=== PATIENT | male | born 1990 | race American Indian/Alaskan Native ===

== ENCOUNTER 2017-08-24 09:35 | Emergency (ER) | payer SELFPAY ==
[2017-08-24 09:51] VITALS: BP 112/73
[2017-08-24 10:35] LABS: Basophils % (Auto) 0.5 % (0.0-1.8); Eosinophils % (Auto) 1.7 % (0.0-4.3); Hematocrit 45.8 % (35.5-45.6); Hemoglobin 15.5 gm/dl (11.8-15.2); Mean Corpuscular HGB Conc 34 % (32-34); Mean Corpuscular Hemoglobin 30 pg (28-32); Mean Corpuscular Volume 90 fl (84-94); Platelet Count 143 K/mm3 (140-440); Red Blood Count 5.09 M/mm3 (3.65-5.03); Red Cell Distribution Width 14.4 % (13.2-15.2); White Blood Count 8.2 K/mm3 (4.5-11.0)
[2017-08-24 10:50] LABS: Alanine Aminotransferase 10 units/L (7-56); Albumin 4.4 g/dL (3.9-5); Albumin/Globulin Ratio 1.6 %; Alkaline Phosphatase 35 units/L (35-129); Anion Gap 14 mmol/L; BUN/Creatinine Ratio 18; Blood Urea Nitrogen 14 mg/dL (9-20); Calcium 8.8 mg/dL (8.4-10.2); Carbon Dioxide 29 mmol/L (22-30); Glucose 89 mg/dL (75-100); Lipase 17 units/L (13-60); Potassium 4.7 mmol/L (3.6-5.0); Sodium 140 mmol/L (137-145); Total Protein 7.2 g/dL (6.3-8.2)
--- NOTE | 2017-08-24 10:58 | Emergency Department Report ---
Chief Complaint: Abdominal Pain Stated Complaint: ABDOMINAL PAIN - HPI History of Present Illness: 27 y/o male with nmh, hx of ETOH, and Marijuana last use 2 days ago , who presents for generalized abdominal pain with n/v/d x 5 days , no fever no chills lost po intake 2 days ago subjectively , pain now 5/10 periumbilical , last n/v yesterday, last diarrhea yesterday. - Exam Vital Signs: Vital Signs 08/24/17 09:46 Temperature 98.1 F Pulse Rate 71 Respiratory 18 Rate Blood Pressure 112/73 O2 Sat by Pulse 100 Oximetry MSE screening note: Focused history and physical exam performed. Due to findings the following was ordered: ED Medical Decision Making - Lab Data Result diagrams: 08/24/17 10:14 08/24/17 10:14 ED Disposition for MSE Condition: Stable Referrals: PRIMARY CARE, [Primary Care Provider] - 3-5 Days
[2017-08-24 11:35] LABS: Bacteria,Urine 1+ /HPF (Negative); Bilirubin,Urine NEG (Negative); Blood,Urine NEG (Negative); Ketones,Urine NEG (Negative); Leukocyte Esterase,Urine NEG (Negative); Mucus,Urine FEW /HPF; Nitrite,Urine NEG (Negative); Protein,Urine <15 mg/dL mg/dL (Negative)
== END 2017-08-24 22:45 | disposition left against medical advice (07) ==
LOC: ED 09:35
DX: R10.9 Unspecified abdominal pain (principal); Z53.21 Procedure and treatment not carried out due to patient leaving prior to being seen by health care provider
CPT/HCPCS: 36415; 80053; 81001; 83690; 85025

== ENCOUNTER 2017-08-25 08:42 | Emergency (ER) | payer OTHER ==
[2017-08-25 09:44] VITALS: BP 106/62
--- NOTE | 2017-08-25 09:52 | Emergency Department Report ---
Chief Complaint: Abdominal Pain Stated Complaint: ABDOMINAL PAIN - HPI History of Present Illness: This is a 27-year-old male that presents with diffuse abdominal pain x2 weeks. Patient stated had episode of nausea, vomiting, and diarrhea but has subsided a couple of days ago. Patient denies any chest pain, shortness of breathe, numbness, tingling, fever, chills, n/v, headache, stiff neck. Denies any PMH. - Exam Vital Signs: Vital Signs 08/25/17 09:39 Temperature 97.3 F L Pulse Rate 75 Blood Pressure 106/62 O2 Sat by Pulse 97 Oximetry Physical Exam: GENERAL: The patient is a well-developed, well-nourished female in no apparent distress. Patient is alert and acting appropriately for age. Alert and oriented 3, no apparent distress, normal gait, atraumatic. ABDOMEN: Soft, nontender, and nondistended. Slight tenderness diffuse abdominal. Positive bowel sounds. No hepatosplenomegaly was noted. No guarding or rebound tenderness, negative epigastric bruit. Negative psoas sign, negative dumont sign, negative McBurneys sign MSE screening note: Focused history and physical exam performed. Due to findings the following was ordered: 1- This initial assessment/diagnostic orders/clinical plan/ treatment(s) is/are subject to change based on pt's health status, clinical progression and re- assessment by fellow clinical providers in the ED. Further treatment and workup at subsequent clinical provers discretion. Patient/guardians urged not to elope from ED as their condition may be serious if not clinically assessed and managed. 2-CBC, CMP, Lipase, amylase, UA ED Disposition for MSE Condition: Stable
[2017-08-25 10:14] LABS: Basophils % (Auto) 0.4 % (0.0-1.8); Eosinophils % (Auto) 1.3 % (0.0-4.3); Hematocrit 47.1 % (35.5-45.6); Hemoglobin 15.6 gm/dl (11.8-15.2); Mean Corpuscular HGB Conc 33 % (32-34); Mean Corpuscular Hemoglobin 30 pg (28-32); Mean Corpuscular Volume 90 fl (84-94); Platelet Count 154 K/mm3 (140-440); Red Blood Count 5.25 M/mm3 (3.65-5.03); Red Cell Distribution Width 14.3 % (13.2-15.2); White Blood Count 8.1 K/mm3 (4.5-11.0)
[2017-08-25 10:26] LABS: Alanine Aminotransferase 9 units/L (7-56); Albumin 4.3 g/dL (3.9-5); Albumin/Globulin Ratio 1.7 %; Alkaline Phosphatase 36 units/L (35-129); Amylase 75 units/L (27-131); Anion Gap 14 mmol/L; BUN/Creatinine Ratio 21; Blood Urea Nitrogen 19 mg/dL (9-20); Calcium 8.7 mg/dL (8.4-10.2); Carbon Dioxide 29 mmol/L (22-30); Chloride 99.3 mmol/L (98-107); Glucose 93 mg/dL (75-100); Lipase 12 units/L (13-60); Potassium 4.3 mmol/L (3.6-5.0); Sodium 138 mmol/L (137-145); Total Protein 6.9 g/dL (6.3-8.2)
== END 2017-08-25 09:48 | disposition left against medical advice (07) ==
LOC: ED 08:42
DX: R10.9 Unspecified abdominal pain (principal); Z53.21 Procedure and treatment not carried out due to patient leaving prior to being seen by health care provider
CPT/HCPCS: 36415; 80053; 82150; 83690; 85025

== ENCOUNTER 2019-09-01 08:01 | Emergency (ER) | payer SELFPAY ==
[2019-09-01 08:28] LABS: Basophils % (Auto) 0.7 % (0.0-1.8); Eosinophils # (Auto) 0.2 K/mm3 (0.0-0.4); Eosinophils % (Auto) 3.2 % (0.0-4.3); Hematocrit 41.1 % (35.5-45.6); Hemoglobin 14.2 gm/dl (11.8-15.2); Lymphocytes # (Auto) 1.5 K/mm3 (1.2-5.4); Mean Corpuscular HGB Conc 35 % (32-34); Mean Corpuscular Volume 88 fl (84-94); Monocytes # (Auto) 0.7 K/mm3 (0.0-0.8); Monocytes % (Auto) 10.3 % (0.0-7.3); Platelet Count 159 K/mm3 (140-440); Red Blood Count 4.67 M/mm3 (3.65-5.03); Red Cell Distribution Width 13.4 % (13.2-15.2)
[2019-09-01 08:32] LABS: Bilirubin,Urine NEG (Negative); Blood,Urine NEG (Negative); Color,Urine Yellow (Yellow); Mucus,Urine FEW /HPF; Protein,Urine <15 mg/dL mg/dL (Negative); WBC,Urine < 1.0 /HPF (0.0-6.0)
[2019-09-01] MEDS ORDERED: DICYCLOMINE 20 MG/2 ML INJ IM ONE (08:37)
[2019-09-01] MEDS ORDERED: SODIUM CHLORIDE 0.9% 1000 ML 1,000 ML IV ONE (08:37)
[2019-09-01] MEDS ORDERED: ONDANSETRON 4 MG/2 ML INJ IV ONE (08:37)
[2019-09-01 08:46] LABS: Alanine Aminotransferase 22 units/L (7-56); Albumin 4.4 g/dL (3.9-5); BUN/Creatinine Ratio 17; Blood Urea Nitrogen 15 mg/dL (9-20); Hemolysis Index 9
--- NOTE | 2019-09-01 08:55 | Emergency Department Report ---
ED General Adult HPI - General Chief complaint: Nausea/Vomiting/Diarrhea Stated complaint: VOMIT/DIARRHEA Time Seen by Provider: 09/01/19 08:30 Source: patient Mode of arrival: Ambulatory Limitations: No Limitations - History of Present Illness Initial comments: Patient is a 29-year-old male presents emergency room with complaints of N/V/D that began yesterday. He states he has had approximately 3 episodes of vomiting and about 6-7 episodes of diarrhea. He denies any sick contacts. He states he has eaten several different foods over the last few days. He denies any fever, blood or pus in the stool, hematochezia, hematemesis. He states he has mild abdominal cramping. He is able to keep water down. Denies any past medical history or allergies medications. - Related Data Previous Rx's Medication Instructions Recorded Last Taken Type Ondansetron [Zofran Odt] 4 mg PO Q8HR PRN #10 tab.rapdis 09/01/19 Unknown Rx Allergies Allergy/AdvReac Type Severity Reaction Status Date / Time No Known Allergies Allergy Verified 08/25/17 09:39 ED Review of Systems ROS: Stated complaint: VOMIT/DIARRHEA Other details as noted in HPI Comment: All other systems reviewed and negative ED Past Medical Hx - Past Medical History Previous Medical History?: No - Surgical History Past Surgical History?: Yes Additional Surgical History: L leg surgery - Social History Smoking Status: Current Every Day Smoker - Medications Home Medications: Home Medications Medication Instructions Recorded Confirmed Last Taken Type Ondansetron [Zofran Odt] 4 mg PO Q8HR PRN #10 tab.rapdis 09/01/19 Unknown Rx ED Physical Exam - General Limitations: No Limitations General appearance: alert, in no apparent distress - Head Head exam: Present: atraumatic, normocephalic - Eye Eye exam: Present: normal appearance - ENT ENT exam: Present: mucous membranes dry (mild) - Respiratory Respiratory exam: Present: normal lung sounds bilaterally. Absent: respiratory distress, wheezes, rales, rhonchi, stridor, chest wall tenderness, accessory muscle use, decreased breath sounds, prolonged expiratory - Cardiovascular Cardiovascular Exam: Present: regular rate, normal rhythm, normal heart sounds. Absent: systolic murmur, diastolic murmur, rubs, gallop - GI/Abdominal GI/Abdominal exam: Present: soft, normal bowel sounds. Absent: distended, tenderness, guarding, rebound, rigid - Neurological Exam Neurological exam: Present: alert, oriented X3 - Psychiatric Psychiatric exam: Present: normal affect, normal mood - Skin Skin exam: Present: warm, dry, intact ED Course Vital Signs 09/01/19 09/01/19 08:08 10:11 Temperature 98.3 F Pulse Rate 74 71 Respiratory 15 16 Rate Blood Pressure 125/73 Blood Pressure 130/74 [Left] O2 Sat by Pulse 99 100 Oximetry ED Medical Decision Making - Lab Data Result diagrams: 09/01/19 08:19 09/01/19 08:19 Lab Results 09/01/19 09/01/19 09/01/19 Range/Units 08:19 08:19 08:20 WBC 7.0 (4.5-11.0) K/mm3 RBC 4.67 (3.65-5.03) M/mm3 Hgb 14.2 (11.8-15.2) gm/dl Hct 41.1 (35.5-45.6) % MCV 88 (84-94) fl MCH 31 (28-32) pg MCHC 35 H (32-34) % RDW 13.4 (13.2-15.2) % Plt Count 159 (140-440) K/mm3 Lymph % (Auto) 21.0 (13.4-35.0) % [place] % (Auto) 10.3 H (0.0-7.3) % Eos % (Auto) 3.2 (0.0-4.3) % Baso % (Auto) 0.7 (0.0-1.8) % Lymph # 1.5 (1.2-5.4) K/mm3 Sterling # 0.7 (0.0-0.8) K/mm3 Eos # 0.2 (0.0-0.4) K/mm3 Baso # 0.0 (0.0-0.1) K/mm3 Seg Neutrophils % 64.8 (40.0-70.0) % Seg Neutrophils # 4.5 (1.8-7.7) K/mm3 Sodium 138 (137-145) mmol/L Potassium 3.7 (3.6-5.0) mmol/L Chloride 101.7 (98-107) mmol/L Carbon Dioxide 25 (22-30) mmol/L Anion Gap 15 mmol/L BUN 15 (9-20) mg/dL Creatinine 0.9 (0.8-1.5) mg/dL Estimated GFR > 60 ml/min BUN/Creatinine Ratio 17 % Glucose 104 H (75-100) mg/dL Calcium 9.0 (8.4-10.2) mg/dL Total Bilirubin 0.60 (0.1-1.2) mg/dL AST 35 (5-40) units/L ALT 22 (7-56) units/L Alkaline Phosphatase 44 (35-129) units/L Total Protein 7.2 (6.3-8.2) g/dL Albumin 4.4 (3.9-5) g/dL Albumin/Globulin Ratio 1.6 % Urine Color Yellow (Yellow) Urine Turbidity Clear (Clear) Urine pH 7.0 (5.0-7.0) Ur Specific [place] 1.017 (1.003-1.030) Urine Protein <15 mg/dl (Negative) mg/dL Urine Glucose (UA) Neg (Negative) mg/dL Urine Ketones 20 (Negative) mg/dL Urine Blood Neg (Negative) Urine Nitrite Neg (Negative) Urine Bilirubin Neg (Negative) Urine Urobilinogen 2.0 (<2.0) mg/dL Ur Leukocyte Esterase Neg (Negative) Urine WBC (Auto) < 1.0 (0.0-6.0) /HPF Urine RBC (Auto) 1.0 (0.0-6.0) /HPF Urine Mucus Few /HPF - Medical Decision Making Patient is a 29-year-old male presents emergency room with complaints of N/V/D that began yesterday. He states he has had approximately 3 episodes of vomiting and about 6-7 episodes of diarrhea. He denies any sick contacts. He states he has eaten several different foods over the last few days. He denies any fever, blood or pus in the stool, hematochezia, hematemesis. He states he has mild abdominal cramping. He is able to keep water down. Denies any past medical history or allergies medications. Vitals are normal. No abdominal tenderness or rigidity on exam. Labs are stable. No leukocytosis. UA without signs of infection, mild dehydration evident on UA. Patient given 1 L normal saline, Zofran, Bentyl. Patient's symptoms completely resolved. Patient was able to tolerate by mouth intake while in the ED. Patient had no further episodes of nausea, vomiting, diarrhea. pt given prescription for Zofran. advised pt to Please take medication as prescribed as needed. Increase your fluid intake over the next several days. Eat a bland diet. Follow-up with a primary care doctor in the next 2-3 days. Return to the emergency room for any new or worsening symptoms. - Differential Diagnosis gastroenteritis, gastritis, PUD, pancreatitis, colitis, appendicitis Critical care attestation.: If time is entered above; I have spent that time in minutes in the direct care of this critically ill patient, excluding procedure time. ED Disposition Clinical Impression: Nausea vomiting and diarrhea Disposition: - TO HOME OR SELFCARE Is pt being admited?: No Does the pt Need Aspirin: No Condition: Stable Instructions: Gastroenteritis (ED) Additional Instructions: Please take medication as prescribed as needed. Increase your fluid intake over the next several days. Eat a bland diet. Follow-up with a primary care doctor in the next 2-3 days. Return to the emergency room for any new or worsening symptoms. Prescriptions: Ondansetron [Zofran Odt] 4 mg PO Q8HR PRN #10 tab.rapdis PRN Reason: Nausea And Vomiting Referrals: ROSALIA RUIZ MD [Staff Physician] - 2-3 Days Forms: Work/School Release Form(ED) Time of Disposition: 10:02 Print Language: ARABIC
[2019-09-01 10:11] VITALS: BP 130/74
== END 2019-09-01 10:11 | disposition home or self-care (01) ==
LOC: ED 08:01
DX: R11.2 Nausea with vomiting, unspecified (principal); R19.7 Diarrhea, unspecified; F17.200 Nicotine dependence, unspecified, uncomplicated
CPT/HCPCS: 36415; 80053; 81001; 85025; 96372; 96374; 99283; J0500; J2405; J7030

== ENCOUNTER 2019-09-17 12:03 | Emergency (ER) | payer SELFPAY ==
[2019-09-17 12:25] VITALS: BP 96/60
--- NOTE | 2019-09-17 12:50 | Event Note ---
ED Screening Note Date of service: 09/17/19 Time: 12:46 ED Screening Note: 29 y o male presents with lft shoulder and rightt sided back pain s/p fall against a broken window yesterday minor abrasions to shoulder and leg no loc, no head injury This initial assessment/diagnostic orders/clinical plan/treatment(s) is/are subject to change based on patients health status, clinical progression and re- assessment by fellow clinical providers in the ED. Further treatment and workup at subsequent clinical providers discretion. Patient/guardian urged not to elope from the ED as their condition may be serious if not clinically assessed and managed. Initial orders include: acc eval
[2019-09-17] MEDS ORDERED: HYDROcodone/ACETAMINOPHEN 5-325 MG TAB PO STA (15:11)
--- NOTE | 2019-09-17 15:49 | Emergency Department Report ---
ED Back Pain/Injury HPI - General Chief Complaint: Fall Stated Complaint: RT LEG CUT X ONE DAY Time Seen by Provider: 09/17/19 15:09 Source: patient Limitations: No Limitations - History of Present Illness Initial Comments: 29-year-old -Northern [place] male states he was leaning on a window which gave way to his weight causing it to break and him attempting to break his fall by falling backwards today he did not fall onto glass this resulted in the laceration to the lower leg right side medial aspect as well as pain to his lower back. Reports no loss of bowel or bladder no saddle paresthesia Complaint: back pain -: Gradual Similar Symptoms Previously: No Place: home Radiation: none Severity: mild Consistency: constant Improves With: none Worsens With: none Associated Symptoms: denies: confusion, weakness, chest pain, fever/chills, constipation, headaches, rash, seizure, shortness of breath - Related Data Previous Rx's Medication Instructions Recorded Last Taken Type Ondansetron [Zofran Odt] 4 mg PO Q8HR PRN #10 tab.rapdis 09/01/19 Unknown Rx Ketorolac [Toradol] 10 mg PO Q6H PRN #15 tablet 09/17/19 Unknown Rx methOCARBAMOL [Robaxin TAB] 750 mg PO Q8H PRN #14 tablet 09/17/19 Unknown Rx Allergies Allergy/AdvReac Type Severity Reaction Status Date / Time No Known Allergies Allergy Verified 08/25/17 09:39 ED Review of Systems ROS: Stated complaint: RT LEG CUT X ONE DAY Other details as noted in HPI Comment: All other systems reviewed and negative ED Past Medical Hx - Past Medical History Previous Medical History?: No - Surgical History Past Surgical History?: Yes Additional Surgical History: L leg surgery - Social History Smoking Status: Current Every Day Smoker Substance Use Type: Alcohol - Medications Home Medications: Home Medications Medication Instructions Recorded Confirmed Last Taken Type Ondansetron [Zofran Odt] 4 mg PO Q8HR PRN #10 tab.rapdis 09/01/19 Unknown Rx Ketorolac [Toradol] 10 mg PO Q6H PRN #15 tablet 09/17/19 Unknown Rx methOCARBAMOL [Robaxin TAB] 750 mg PO Q8H PRN #14 tablet 09/17/19 Unknown Rx ED Physical Exam - General Limitations: No Limitations General appearance: alert, in no apparent distress - Head Head exam: Present: atraumatic, normocephalic - Eye Eye exam: Present: normal appearance, PERRL, EOMI Pupils: Present: normal accommodation - ENT ENT exam: Present: normal exam, mucous membranes moist, TM's normal bilaterally - Neck Neck exam: Present: normal inspection - Respiratory Respiratory exam: Present: normal lung sounds bilaterally. Absent: respiratory distress - Cardiovascular Cardiovascular Exam: Present: regular rate, normal rhythm. Absent: systolic murmur, diastolic murmur, rubs, gallop - GI/Abdominal GI/Abdominal exam: Present: soft, normal bowel sounds - Rectal Rectal exam: Present: deferred - Extremities Exam Extremities exam: Present: normal inspection, tenderness, other - Expanded Lower Extremity Exam Right Lower Leg exam: Present: abrasion (linear abrasion healing no signs of any infection noted no discharge or induration) - Back Exam Back exam: Present: normal inspection, tenderness, paraspinal tenderness, vertebral tenderness (lumbar region. Straight leg raise is negative. No pain with [place]) - Neurological Exam Neurological exam: Present: alert, oriented X3, CN II-XII intact - Psychiatric Psychiatric exam: Present: normal affect, normal mood - Skin Skin exam: Present: warm, dry, intact, normal color. Absent: rash ED Course Vital Signs 09/17/19 12:21 Temperature 98.6 F Pulse Rate 75 Respiratory 18 Rate Blood Pressure 96/60 O2 Sat by Pulse 98 Oximetry ED Medical Decision Making - Medical Decision Making This patient presents with back pain most consistent with muscular skeletal pain. Differential diagnoses includes lumbago versus musculoskeletal spasm / strain versus sciatica. No back pain red flags on history or physical. Presentation not consistent with malignancy (lack of history of malignancy, lack of B symptoms), fracture (no trauma, no bony tenderness to palpation), cauda equina (no bowel or urinary incontinence/retention, no saddle anesthesia, no distal weakness), AAA, viscus perforation , pulmonary embolism, renal colic, pyelonephritis (afebrile, no CVAT, no urinary symptoms). Given the clinical picture, no indication for imaging at this time. Critical care attestation.: If time is entered above; I have spent that time in minutes in the direct care of this critically ill patient, excluding procedure time. ED Disposition Clinical Impression: Abrasion, Back pain Disposition: DC-01 TO HOME OR SELFCARE Is pt being admited?: No Does the pt Need Aspirin: No Condition: Stable Instructions: Back Pain (ED), Arthralgia (ED), Muscle Spasm (ED), Acute Low Back Pain (ED) Referrals: [facility] [Outside] - 3-5 Days RODRÍGUEZ BARBER MD [Staff Physician] - 3-5 Days
== END 2019-09-17 16:20 | disposition home or self-care (01) ==
LOC: ED 12:03
DX: S30.810A Abrasion of lower back and pelvis, initial encounter (principal); F17.200 Nicotine dependence, unspecified, uncomplicated; F10.10 Alcohol abuse, uncomplicated; Z98.890 Other specified postprocedural states; Z79.899 Other long term (current) drug therapy; W18.39XA Other fall on same level, initial encounter; Y93.89 Activity, other specified; Y92.89 Other specified places as the place of occurrence of the external cause; Y99.8 Other external cause status

== ENCOUNTER 2019-11-20 09:00 | Emergency (ER) | payer SELFPAY ==
[2019-11-20 09:07] VITALS: BP 109/71
--- NOTE | 2019-11-20 12:21 | Event Note ---
ED Screening Note ED Screening Note: diarrhea that began yesterday states he has had approximately 6-7 episodes since yesterday no n/v no fever no hematochezia, no melena, no pus in the stool no recent travel no recent surgery no camping no recent antibiotics no abd pain PMHx none no allergies to meds +tobacco no marijuana use no IV drug use rarely drinks ETOH
--- NOTE | 2019-11-20 12:28 | Emergency Department Report ---
Chief Complaint: Nausea/Vomiting/Diarrhea Stated Complaint: DIARRHEA Time Seen by Provider: 11/20/19 12:20 - HPI History of Present Illness: pt is a 29 yo male who presents to the ED with c/o diarrhea that began yesterday states he has had approximately 6-7 episodes since yesterday no n/v no fever no hematochezia, no melena, no pus in the stool no recent travel no recent surgery no camping no recent antibiotics no abd pain PMHx none no allergies to meds +tobacco no marijuana use no IV drug use rarely drinks ETOH Patient denies any risk factors for infectious diarrhea or hepatitis, no abd ttp to suggest colitis or IBD On exam: Non toxic appearing, no acute distress atraumatic, normocephalic normal appearance of the eyes, PERRL, EOMI, no periorbital edema or ecchymosis moist mucus membranes regular heart rate and rhythm, no gallops, no rubs, no murmurs breath sounds are clear bilaterally, no w/r/r no abd ttp, no guarding, no rebound, no rigidity, no peritoneal signs, normal bowel sounds A&O x4, no focal neuro deficit skin is warm, dry, intact No abdominal tenderness to palpation, no guarding, no rigidity, no peritoneal signs, no signs of dehydration Patient states that he intermittently gets this every couple months. Discussed symptomatic treatment and supportive care with patient Patient will be referred to a GI doctor and a primary care doctor Discussed strict return precautions with patient Patient is presenting with a nonmedical emergency at this time, no threat to life or limb at this time - Exam Vital Signs: Vital Signs 11/20/19 11/20/19 09:05 12:21 Temperature 98.3 F 98.3 F Pulse Rate 73 70 Respiratory 20 16 Rate Blood Pressure 109/71 O2 Sat by Pulse 100 100 Oximetry MSE screening note: Focused history and physical exam performed. ED Disposition for MSE Clinical Impression: Diarrhea Qualifiers: Diarrhea type: unspecified type Qualified Code(s): R19.7 - Diarrhea, unspecified Disposition: Z-07 MED SCREENING EXAM-LEFT Is pt being admited?: No Does the pt Need Aspirin: No Condition: Stable Instructions: Acute Diarrhea (ED) Additional Instructions: please increase your water intake. eat a bland diet. follow up with a GI doctor. may take pepto bismol over the counter, it will make your stool a darker color. follow up with a primary care doctor. return to the emergency room for any new or worsening symptoms including but not limited to blood or pus in the stool, fever, worsening abdominal pain, etc. Referrals: [facility] [Provider Group] - 3-5 Days ROSALIA RUIZ MD [Staff Physician] - 3-5 Days [facility] [Outside] - 3-5 Days [facility] [Outside] - 3-5 Days Forms: Work/School Release Form(ED) Time of Disposition: 12:27 Print Language: ANGOLAN
== END 2019-11-20 12:49 | disposition left against medical advice (07) ==
LOC: ED 09:00
DX: R19.7 Diarrhea, unspecified (principal)
CPT/HCPCS: 99282